=== PATIENT | female | born 1980 | race Caucasian/White ===

== ENCOUNTER 2018-09-24 09:10 | Emergency (ER) | payer OTHER ==
[2018-09-24 09:58] VITALS: BP 98/76
[2018-09-24] MEDS ORDERED: Tetan/Diph/Pertus SYR(Tdap)* 0.5 ML SYR(BOOSTRIX) use SYR IM ONE (10:15)
--- NOTE | 2018-09-24 10:19 | ED ---
Upper Extremity Pain - HPI Summary HPI Summary: 38 yr old female with left olecrenon bursae swelling, redness and pain. The patient has had progressive redness and swelling for about five days. She states she must have bumped her elbow and scratched the area several days ago, and this is what caused her redness and swelling. She has no pain in the elbow joint. She is able to flex, extend and supinate pronate without increased pain. Pain is moderate. No fever or chills - History of Current Complaint Chief Complaint: UCSkin Stated Complaint: SKIN COMPLAINT Time Seen by Provider: 09/24/18 10:06 Hx Last Menstrual Period: 09/02/18 - Allergies/Home Medications Allergies/Adverse Reactions: Allergies Allergy/AdvReac Type Severity Reaction Status Date / Time No Known Allergies Allergy Verified 09/24/18 09:53 Home Medications: Home Medications Neomycin/Bacitracin/Polymyxinb [Triple Antibiotic Ointment] 1 applic TOPICAL Q6H PRN 09/24/18 [History Confirmed 09/24/18] Vitamin THERAPEUTIC TAB* [Theragran TAB*] 1 tab PO DAILY 09/24/18 [History Confirmed 09/24/18] PMH/Surg Hx/FS Hx/Imm Hx Infectious Disease History: No Infectious Disease History: Denies: Traveled Outside the [place] in Last 30 Days - Family History Known Family History: Positive: None - Social History Occupation: Employed Full-time Alcohol Use: Rare Substance Use Type: Reports: None Smoking Status (MU): Never Smoked Tobacco Review of Systems Constitutional: Negative Positive: Other - right elbow olecrenon. All Other Systems Reviewed And Are Negative: Yes Physical Exam Triage Information Reviewed: Yes Vital Signs On Initial Exam: Initial Vitals Temp Pulse Resp BP Pulse Ox 97.9 F 82 16 98/76 100 09/24/18 09:48 09/24/18 09:48 09/24/18 09:48 09/24/18 09:48 09/24/18 09:48 Vital Signs Reviewed: Yes Appearance: Positive: Well-Appearing, No Pain Distress Skin: Positive: Other - left elbow with redness, swelling of the olecrenon. Head/Face: Positive: Normal Head/Face Inspection Eyes: Positive: EOMI ENT: Positive: Normal ENT inspection Neck: Positive: Nontender Respiratory/Lung Sounds: Positive: Clear to Auscultation, Breath Sounds Present Cardiovascular: Positive: RRR. Negative: Murmur Abdomen Description: Negative: Distended Musculoskeletal: Positive: Strength/ROM Intact, Other - left arm: Normal flexion , extension, supination, pronation of the left elbow without pain in elbow joint. Neurological: Positive: Sensory/Motor Intact, Alert, Oriented to Person Place, Time, CN Intact II-III Psychiatric: Positive: Normal Diagnostics - Vital Signs Vital Signs Temp Pulse Resp BP Pulse Ox 09/24/18 09:48 97.9 F 82 16 98/76 100 - Laboratory Lab Statement: Any lab studies that have been ordered have been reviewed, and results considered in the medical decision making process. Course/Dx - Course Course Of Treatment: 38 yr old with olecrenon bursitis. Rx with bactrim DS. - Diagnoses Provider Diagnoses: Olecranon bursitis, left elbow Discharge - Sign-Out/Discharge Documenting (check all that apply): Patient Departure All imaging exams completed and their final reports reviewed: No Studies - Discharge Plan Condition: Good Disposition: HOME Prescriptions: Sulfamethox/Trimethoprim DS* [Bactrim DS 800/160 TAB*] 1 tab PO BID #20 tab Patient Education Materials: Elbow Bursitis (ED) Referrals: Cody Elias MD [Primary Care Provider] - 2 Days - Billing Disposition and Condition Condition: GOOD Disposition: Home
== END 2018-09-24 10:40 | disposition home or self-care (01) ==
LOC: UCCORT 09:10
DX: M70.22 Olecranon bursitis, left elbow (principal)
CPT/HCPCS: 90471; 90715; 99202; G0463